=== PATIENT | female | born 1960 | race Caucasian/White ===

== ENCOUNTER 2020-04-12 19:33 | Day surgery (SDC) | payer BC ==
[~2020-04-12] VITALS: Ht 162.6 cm; Wt 77.3 kg
[2020-04-12] MEDS ORDERED: VENL75CA2 PO (19:46)
--- NOTE | 2020-04-12 21:23 | REPVR ---
PROCEDURE INFORMATION: Exam: XR Soft Tissue Neck Exam date and time: 04/12/2020 8:51 PM Age: 60 years old Clinical indication: Other: Fish bone ? TECHNIQUE: Imaging protocol: XR of the soft tissues of the neck. COMPARISON: No relevant prior studies available. FINDINGS: Airway: Normal. No abnormal narrowing. Soft tissues: Normal. Normal epiglottis. Bones/joints: Unremarkable. IMPRESSION: No acute findings. Electronically signed by: Get Richardson On 04/12/2020 21:22:34 PM
--- NOTE | 2020-04-12 21:27 | REPVR ---
PROCEDURE INFORMATION: Exam: CT Neck Without Contrast Exam date and time: 04/12/2020 9:09 PM Age: 60 years old Clinical indication: Throat pain; Additional info: Throat discomfort; Swallowed fish bone TECHNIQUE: Imaging protocol: Computed tomography images of the neck without contrast. Radiation optimization: All CT scans at this facility use at least one of these dose optimization techniques: automated exposure control; mA and/or kV adjustment per patient size (includes targeted exams where dose is matched to clinical indication); or iterative reconstruction. COMPARISON: CR Soft Tissue Neck 04/12/2020 8:37 PM FINDINGS: Nasopharynx: Unremarkable. Oropharynx: Unremarkable. No significant tonsillar enlargement. Hypopharynx: Unremarkable. Larynx: Unremarkable. Normal epiglottis. Retropharyngeal space: Unremarkable. Submandibular/Parotid glands: Normal. Glands are normal in size. Thyroid: Normal. No enlarged or calcified nodules. Lymph nodes: Unremarkable. No lymphadenopathy. Trachea: Visualized trachea is unremarkable. Lungs: Unremarkable as visualized. Esophagus: There is a 1 cm linear density in the mid esophagus (series 201, image 64), (series 203, image 52) , likely representing the ingested foreign body like fishbone Bones/joints: Unremarkable. No acute fracture. Soft tissues: Unremarkable. No significant soft tissue swelling. IMPRESSION: Linear density in the mid esophagus, likely representing the ingested foreign body like fishbone. Electronically signed by: Get Richardson On 04/12/2020 21:27:11 PM
[2020-04-12] MEDS ORDERED: IBUP200T45 PO (22:17)
[2020-04-12] MEDS ORDERED: MIDAZOLAM INJ 2MG/2ML VIAL (J2250 PER 1MG) As Ordered ONE (23:07)
[2020-04-12] MEDS ORDERED: propofoL 200 MG/20 ML VIAL As Ordered ONE (23:07)
[2020-04-12] MEDS ORDERED: fentaNYL 100 MCG/2 ML INJECTION (J3010) As Ordered ONE (23:07)
[2020-04-12] MEDS ORDERED: LIDOCAINE 2% 100MG/5ML SDV (FOR ANES.) As Ordered ONE (23:08)
[2020-04-12] MEDS ORDERED: ROCURONIUM BROMIDE 50 MG/5 ML VIAL As Ordered ONE (23:08)
[2020-04-12] MEDS ORDERED: SUCCINYLCHOLINE 100 MG/5 ML SYRINGE (J0330) As Ordered ONE (23:08)
[2020-04-12] MEDS ORDERED: dexameTHASONE 4 MG/ML 1ML VIAL (J1100 PER 1MG) As Ordered ONE (23:08)
[2020-04-12] MEDS ORDERED: ONDANSETRON 4MG/2ML VIAL As Ordered ONE (23:08)
[2020-04-13] MEDS ORDERED: METOCLOPRAMIDE INJ 10MG/2ML VIAL (J2765 PER 1) As Ordered ONE (00:18)
[2020-04-13] MEDS ORDERED: fentaNYL 100 MCG/2 ML INJECTION (J3010) IV PRN (01:00)
[2020-04-13] MEDS ORDERED: LR 1,000 ML IV SCH (01:00)
[2020-04-13] MEDS ORDERED: ONDANSETRON 4MG/2ML VIAL IV PRN (01:00)
[2020-04-13 01:31] VITALS: BP 129/63
== END 2020-04-13 01:53 | disposition home or self-care (01) ==
LOC: M ED 19:33 → M SDC 19:34
PROVIDERS: ATTEND Internal Medicine Gastroenterology
DX: T18.108A Unspecified foreign body in esophagus causing other injury, initial encounter (principal); Y92.89 Other specified places as the place of occurrence of the external cause; Y93.9 Activity, unspecified; Y99.9 Unspecified external cause status; J45.909 Unspecified asthma, uncomplicated; G47.30 Sleep apnea, unspecified; F32.9 Major depressive disorder, single episode, unspecified; Z88.8 Allergy status to other drugs, medicaments and biological substances; Z79.899 Other long term (current) drug therapy
CPT/HCPCS: 43247; 70360; 70490; 99284; J0330; J1100; J2250; J2405; J2765; J3010; U0002